=== PATIENT | male | born 1980 | race Caucasian/White ===

== ENCOUNTER 2017-02-10 15:33 | Emergency (ER) | payer OTHER ==
[2017-02-10] MEDS ORDERED: KETOROLAC 60 MG/2 ML VIAL IM STA (15:57)
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
[2017-02-10 18:33] VITALS: BP 129/73; PULSE 87; RESP 18; TEMP 97.5
== END 2017-02-10 16:10 | disposition home or self-care (01) ==
LOC: EC 15:33
DX: T22.211A Burn of second degree of right forearm, initial encounter (principal); T22.112A Burn of first degree of left forearm, initial encounter; Z79.899 Other long term (current) drug therapy; X11.8XXA Contact with other hot tap-water, initial encounter; Y99.0 Civilian activity done for income or pay
CPT/HCPCS: 99283; 96372; J1885

== ENCOUNTER 2018-10-01 07:28 | Emergency (ER) | payer MEDICARE, OTHER ==
[2018-10-01] MEDS ORDERED: KETOROLAC 30 MG/ML 1 ML VIAL IVP STA (07:48)
[2018-10-01] MEDS ORDERED: SODIUM CHLORIDE 0.9% 1,000 ML IV STA (07:48)
--- NOTE | 2018-10-01 08:04 | ED ---
General Adult HPI - General Chief complaint: Abdominal Pain Stated complaint: rt flank pain Time Seen by Provider: 10/01/18 07:30 Source: patient, RN notes reviewed Mode of arrival: ambulatory - History of Present Illness Initial comments: This is a 38-year-old male presents emergency Department complaining of right- sided flank pain for 2 days. Patient states she does have a history of kidney stones but never on the right. Patient states the pain feels reminiscent of his kidney stones but he hasn't had 7 years. Patient states the pain radiates to his lower abdomen and into his back. Patient states there is no movement that makes the symptoms worse. Patient states yesterday he was nauseous and vomiting but today he is not. Patient denies any hematuria or dysuria or urinary frequency. Patient states in the past he has had use lithotripsy to break up the stone. Patient denies any tenderness to palpation on his belly. - Related Data Home Medications Medication Instructions Recorded Confirmed PARoxetine HCL [Paxil] 40 mg PO DAILY 02/10/17 10/01/18 Atorvastatin [Lipitor] 10 mg PO DAILY 10/01/18 10/01/18 Ibuprofen [Motrin Ib] 400 mg PO Q6H PRN 10/01/18 10/01/18 Losartan-Hctz 50-12.5 mg [Hyzaar 1 tab PO DAILY 10/01/18 10/01/18 50-12.5] Previous Rx's Medication Instructions Recorded Hydrocodone/Acetaminophen [[place] 1 each PO Q4HR PRN #14 tab 10/01/18 5-325] Ketorolac [Toradol] 10 mg PO Q6HR #15 tab 10/01/18 Tamsulosin [Flomax] 0.4 mg PO DAILY #10 cap 10/01/18 Allergies Allergy/AdvReac Type Severity Reaction Status Date / Time No Known Allergies Allergy Verified 10/01/18 08:41 Review of Systems ROS Statement: Those systems with pertinent positive or pertinent negative responses have been documented in the HPI. ROS Other: All systems not noted in ROS Statement are negative. Past Medical History Past Medical History: Hypertension Additional Past Medical History / Comment(s): kidney stones History of Any Multi-Drug Resistant Organisms: None Reported Additional Past Surgical History / Comment(s): lithotripsy Past Psychological History: Anxiety Smoking Status: Former smoker Past Alcohol Use History: Occasional Past Drug Use History: Marijuana General Exam - General Exam Comments Initial Comments: GENERAL: Patient is well-developed and well-nourished. Patient is nontoxic and well- hydrated and is in moderate distress. ENT: Neck is soft and supple. No significant lymphadenopathy is noted. Oropharynx is clear. Moist mucous membranes. Neck has full range of motion without eliciting any pain. EYES: The sclera were anicteric and conjunctiva were pink and moist. Extraocular movements were intact and pupils were equal round and reactive to light. Eyelids were unremarkable. PULMONARY: Unlabored respirations. Good breath sounds bilaterally. No audible rales rhonchi or wheezing was noted. CARDIOVASCULAR: There is a regular rate and rhythm without any murmurs gallops or rubs. ABDOMEN: Soft and nontender with normal bowel sounds. SKIN: Skin is clear with no lesions or rashes and otherwise unremarkable. NEUROLOGIC: Patient is alert and oriented x3. Cranial nerves II through XII are grossly intact. Motor and sensory are also intact. Normal speech, volume and content. Symmetrical smile. MUSCULOSKELETAL: Normal extremities with adequate strength and full range of motion. LYMPHATICS: No significant lymphadenopathy is noted PSYCHIATRIC: Normal psychiatric evaluation. Course Vital Signs 10/01/18 07:34 Temperature 98.3 F Pulse Rate 86 Respiratory 18 Rate Blood Pressure 169/100 O2 Sat by Pulse 99 Oximetry Medical Decision Making - Medical Decision Making CAT scan showed a 6-7 cm mid ureter stone. Patient has right-sided hydronephrosis - Lab Data Result diagrams: 10/01/18 08:23 10/01/18 08:23 Lab Results 10/01/18 10/01/18 Range/Units 08:23 08:23 WBC 11.2 H (3.8-10.6) k/uL RBC 4.88 (4.30-5.90) m/uL Hgb 14.2 (13.0-17.5) gm/dL Hct 40.9 (39.0-53.0) % MCV 83.8 (80.0-100.0) fL MCH 29.2 (25.0-35.0) pg MCHC 34.8 (31.0-37.0) g/dL RDW 15.0 (11.5-15.5) % Plt Count 250 (150-450) k/uL Neutrophils % 78 % Lymphocytes % 13 % Monocytes % 7 % Eosinophils % 1 % Basophils % 0 % Neutrophils # 8.7 H (1.3-7.7) k/uL Lymphocytes # 1.5 (1.0-4.8) k/uL Monocytes # 0.8 (0-1.0) k/uL Eosinophils # 0.1 (0-0.7) k/uL Basophils # 0.0 (0-0.2) k/uL Sodium 143 (137-145) mmol/L Potassium 3.8 (3.5-5.1) mmol/L Chloride 105 (98-107) mmol/L Carbon Dioxide 28 (22-30) mmol/L Anion Gap 10 mmol/L BUN 18 (9-20) mg/dL Creatinine 1.38 H (0.66-1.25) mg/dL Est GFR (CKD-EPI)AfAm 76 (>60 ml/min/1.73 sqM) Est GFR (CKD-EPI)NonAf 65 (>60 ml/min/1.73 sqM) Glucose 106 H (74-99) mg/dL Calcium 9.6 (8.4-10.2) mg/dL Total Bilirubin 0.6 (0.2-1.3) mg/dL AST 31 (17-59) U/L ALT 50 (21-72) U/L Alkaline Phosphatase 56 (38-126) U/L Total Protein 7.5 (6.3-8.2) g/dL Albumin 4.5 (3.5-5.0) g/dL Amylase 67 (30-110) U/L Lipase 74 (23-300) U/L Disposition Clinical Impression: Kidney stone, Hydronephrosis Disposition: HOME SELF-CARE Condition: Good Prescriptions: Tamsulosin [Flomax] 0.4 mg PO DAILY #10 cap Hydrocodone/Acetaminophen [[place] 5-325] 1 each PO Q4HR PRN #14 tab PRN Reason: Pain Ketorolac [Toradol] 10 mg PO Q6HR #15 tab Is patient prescribed a controlled substance at d/c from ED?: Yes When asked, does pt state using other controlled substances?: No If prescribed controlled substance>3 days was MAPS reviewed?: Prescribed <3 Days If opioid is for acute pain is fill amount 7 days or less?: Yes If Rx opioid, was Start Talking consent form obtained?: Yes Referrals: Kenneth Gomez MD [Primary Care Provider] - 1-2 days Time of Disposition: 08:59
--- NOTE | 2018-10-01 08:20 | XR ---
EXAMINATION TYPE: XR KUB DATE OF EXAM: 10/01/2018 COMPARISON: X-ray 10/21/2010 HISTORY: Pain TECHNIQUE: One view abdominal series FINDINGS: The osseous structures are intact. The bowel gas pattern is nonspecific. Lung bases are clear. Ther e is a 6 mm calcification region of the right renal pelvis or proximal ureter. Scattered air-fluid le vels are seen. IMPRESSION: 1. Nonspecific abdomen. Scattered air-fluid levels seen with enteritis or ileus. 2. Suspect proximal right ureteral stone measuring 6 mm.
--- NOTE | 2018-10-01 08:41 | CT ---
EXAMINATION TYPE: CT abdomen pelvis wo con DATE OF EXAM: 10/01/2018 COMPARISON: None HISTORY: Right flank pain,jhistory of stone CT DLP: 1146 mGycm Automated exposure control for dose reduction was used. TECHNIQUE: Helical acquisition of images was performed from the lung bases through the pelvis. FINDINGS: LUNG BASES: There is a 3 mm nodule in the anterior segment right upper lobe too small to characterize . Six-month follow-up recommended. LIVER/GB: No significant abnormality is appreciated. PANCREAS: No significant abnormality is seen. SPLEEN: No significant abnormality is seen. ADRENALS: No significant abnormality is seen. KIDNEYS: There is perinephric edema involving the right kidney which appears enlarged. There is moder ate right hydronephrosis secondary to a proximal right ureteral calculus measuring 6 to 7 mm. Additio nal punctate 1 mm lower pole right renal calculus and upper pole left renal calculus. No hydronephros is on the left. ADENOPATHY: None visualized. OSSEOUS STRUCTURES: No significant abnormality is seen. BOWEL: Bowel gas pattern nonspecific. Appendix normal. OTHER: Aorta of normal caliber. No free fluid. No free air. Fat-containing hiatal hernia. IMPRESSION: 1. Right renal enlargement with perinephric edema is moderate right hydronephrosis secondary to obstr ucting proximal right ureteral calculus measuring between 6 and 7 mm. 2. Nonobstructing additional bilateral nephrolithiasis. 3. There is a 3 mm right upper lobe pulmonary nodule. Finding 2 small to characterize. Recommend 6 mo nth follow-up CT scan chest to confirm stability.
[2018-10-01] MEDS ORDERED: ONDANSETRON 4 MG/2 ML VIAL IVP STA (08:56)
[2018-10-01] MEDS ORDERED: HYDROmorphone 1 MG/ML 1 ML SYRINGE IVP STA (08:56)
[2018-10-01 08:58] LABS: Albumin 4.5 g/dL (3.5-5.0); Calcium 9.6 mg/dL (8.4-10.2); Potassium 3.8 mmol/L (3.5-5.1); Total Bilirubin 0.6 mg/dL (0.2-1.3); Total Protein 7.5 g/dL (6.3-8.2)
[2018-10-01 09:00] LABS: Basophils % (A) 0 %; Eosinophils # (A) 0.1 k/uL (0-0.7); Eosinophils % (A) 1 %; HCT 40.9 % (39.0-53.0); HGB 14.2 gm/dL (13.0-17.5); Lymphocytes # (A) 1.5 k/uL (1.0-4.8); Lymphocytes % (A) 13 %; MCH 29.2 pg (25.0-35.0); MCHC 34.8 g/dL (31.0-37.0); MCV 83.8 fL (80.0-100.0); Mean Platelet Volume 7.9; Monocytes # (A) 0.8 k/uL (0-1.0); Monocytes % (A) 7 %; Neutrophils # (A) 8.7 k/uL (1.3-7.7); Neutrophils % (A) 78 %; Platelet Count 250 k/uL (150-450); RBC 4.88 m/uL (4.30-5.90); WBC 11.2 k/uL (3.8-10.6)
[2018-10-01 09:30] VITALS: BP 158/94; PULSE 78; RESP 16; TEMP 97.9
== END 2018-10-01 09:20 | disposition home or self-care (01) ==
LOC: EC 07:28
DX: N13.2 Hydronephrosis with renal and ureteral calculous obstruction (principal); F41.9 Anxiety disorder, unspecified; I10 Essential (primary) hypertension; Z87.891 Personal history of nicotine dependence; Z79.899 Other long term (current) drug therapy; Z98.890 Other specified postprocedural states
CPT/HCPCS: 99284; 96374; 96375; 96361; 36415; 80053; 82150; 83690; 85025; 74018; 74176; J2405; J1885; J1170

== ENCOUNTER 2018-10-10 07:05 | Day surgery (SDC) | payer MEDICARE, OTHER ==
[2018-10-05 17:08] VITALS: BMI 38.6
--- NOTE | 2018-10-05 21:44 | P.GSHP ---
History of Present Illness H&P Date: 10/05/18 Chief Complaint: Right flank pain The patient is a 38-year-old male with a history of calcium oxalate urolithiasis. He passed a stone in 2003, composed of calcium oxalate dihydrate and apatite. He underwent successful left ESWL in 2010. He now presents with right renal colic, and a CT scan shows evidence of right hydronephrosis due to a 6-7 mm right proximal ureteral calculus. Alternative treatment options were reviewed, and he has elected to undergo ESWL. - Constitutional Constitutional: Denies chills, Denies fever - Gastrointestinal Gastrointestinal: Reports nausea - Genitourinary (Female) Genitourinary: Reports flank pain, Reports kidney stones, Denies hematuria Past Medical History Past Medical History: Hyperlipidemia, Hypertension Additional Past Medical History / Comment(s): HX kidney stones History of Any Multi-Drug Resistant Organisms: None Reported Additional Past Surgical History / Comment(s): Lithotripsy Smoking Status: Former smoker - Past Family History Mother Family Medical History: No Reported History Medications and Allergies Home Medications Medication Instructions Recorded Confirmed Type PARoxetine HCL [Paxil] 40 mg PO DAILY 02/10/17 10/05/18 History Atorvastatin [Lipitor] 10 mg PO DAILY 10/01/18 10/05/18 History Hydrocodone/Acetaminophen [[place] 1 each PO Q4HR PRN #14 tab 10/01/18 10/05/18 Rx 5-325] Ibuprofen [Motrin Ib] 400 mg PO Q6H PRN 10/01/18 10/05/18 History Losartan-Hctz 50-12.5 mg [Hyzaar 1 tab PO DAILY 10/01/18 10/05/18 History 50-12.5] Tamsulosin [Flomax] 0.4 mg PO DAILY #10 cap 10/01/18 10/05/18 Rx Ketorolac [Toradol] 10 mg PO Q6HR 10/05/18 10/05/18 History Allergies Allergy/AdvReac Type Severity Reaction Status Date / Time No Known Allergies Allergy Verified 10/05/18 16:47 Surgical - Exam - General well developed, well nourished, no distress - Neck no masses, trachea midline - Respiratory normal respiratory effort, clear to auscultation - Cardiovascular Rhythm: regular Abnormal Heart Sounds: no systolic murmur, no diastolic murmur, no rub, no S3 Gallop, no S4 Gallop, no click, no other - Abdomen Abdomen: soft, non tender, no guarding, no rigid, no rebound - Genitourinary normal penis with no external lesions, testicles non-tender - Psychiatric oriented to time, oriented to person, oriented to place, speech is normal, memory intact Results - Imaging CT scan - abdomen: report reviewed, image reviewed Assessment and Plan (1) Calculus of ureter Status: Acute Code(s): N20.1 - CALCULUS OF URETER SNOMED Code(s): 10968277 (2) Hydronephrosis with renal and ureteral calculus obstruction Status: Acute Code(s): N13.2 - HYDRONEPHROSIS WITH RENAL AND URETERAL CALCULOUS OBSTRUCTION SNOMED Code(s): 016347315 Plan: Right extracorporal shockwave lithotripsy (ESWL). The procedure has been reviewed in detail with the patient. He understands potential risks include anesthesia, renal contusion, perinephric hematoma, treatment failure, incomplete fragmentation, and [place]str[place]. He understands the possible need for secondary treatment.
[~2018-10-10 07:05] MED LIST: LACTATED RINGERS 1,000 ML IV SCH; LIDOCAINE 1% 20 ML VIAL (10MG/ML) FOR IV START INTRADERMA PRN
--- NOTE | 2018-10-10 07:35 | XR ---
KUB HISTORY: Right ureteral calculus Frontal KUB and 2 images correlated to prior KUB and CT 10/01/2018 At the level of the right L3-4 disc space there is a paraspinal calculus measuring approximately 0.8 in size. No other significant abnormality. IMPRESSION: Stable right ureteral calculus. Punctate bilateral nephrolithiasis not well seen on plain film.
[2018-10-10 08:01] VITALS: TEMP 98.3
[2018-10-10] MEDS ORDERED: PROPOFOL 10 MG/ML 20 ML VIAL IV ONE (08:28)
[2018-10-10] MEDS ORDERED: FUROSEMIDE 10 MG/ML 2 ML VIAL ONE (08:28)
[2018-10-10] MEDS ORDERED: MIDAZOLAM 2 MG/2 ML VIAL ONE (08:28)
[2018-10-10] MEDS ORDERED: fentaNYL (PF) 50 MCG/ML 2 ML AMP ONE (08:28)
--- NOTE | 2018-10-10 09:07 | P.OP ---
Date of Procedure: 10/10/18 Preoperative Diagnosis: Right ureteral calculus Postoperative Diagnosis: Same Procedure(s) Performed: Extracorporeal shockwave lithotripsy right, 2500 shocks, energy level Anesthesia: MAC Surgeon: Kenneth Bradley Estimated Blood Loss (ml): 0 Pathology: none sent Condition: stable Disposition: PACU Indications for Procedure: The patient is 38. He has a 7 mm proximal ureteral stone on the right. He comes for shockwave lithotripsy Description of Procedure: Patient is brought to the operating suite. He is given IV sedation on the operating table. The stone was seen in 2 views of fluoroscopy. A total of 2500 shocks at energy level was administered. The stone fractures nicely. 10 mg of Lasix is administered. At the end of procedure the patient awake and returned recovery room good condition. He tolerated procedure well be discharged home upon recovery.
[2018-10-10 09:34] VITALS: BP 131/85; PULSE 71; RESP 16
== END 2018-10-10 09:55 | disposition home or self-care (01) ==
LOC: ORWHC2ENDO 07:05
PROVIDERS: ATTEND Urology
DX: N20.1 Calculus of ureter (principal); Z87.442 Personal history of urinary calculi; I10 Essential (primary) hypertension; E78.5 Hyperlipidemia, unspecified; Z87.891 Personal history of nicotine dependence; F41.9 Anxiety disorder, unspecified; E66.01 Morbid (severe) obesity due to excess calories; Z68.39 Body mass index [BMI] 39.0-39.9, adult; Z79.1 Long term (current) use of non-steroidal anti-inflammatories (NSAID); Z79.899 Other long term (current) drug therapy
CPT/HCPCS: 74018; 50590; J2250; J1940; J3010; J2704

== ENCOUNTER → 2018-10-17 | Outpatient (CLI) | payer OTHER ==
--- NOTE | 2018-10-17 09:58 | XR ---
EXAMINATION TYPE: XR KUB DATE OF EXAM: 10/17/2018 CLINICAL DATA: 38-year-old male one week status post right-sided lithotripsy, follow-up exam, [facility] COMPARISON: None available at the time of this dictation FINDINGS: Nonobstructive bowel gas pattern. No significant stool burden. A couple punctate 3 mm calculi are present in the lower pole of the right kidney. Additional 2-3 calc ifications are present in the right paramedian pelvis measuring up to 6 mm. IMPRESSION: 1. A couple punctate 3 mm right lower pole renal calculi. 2. A few additional calcifications in the right paramedian pelvis measuring up to 6 mm could represen t distal ureteral calculi, bladder calculi, or phleboliths. Clinically correlate.
== END | disposition home or self-care (01) ==
LOC: RADXRMAIN 08:31
PROVIDERS: ATTEND Urology
DX: N20.0 Calculus of kidney (principal)
CPT/HCPCS: 74018

== ENCOUNTER → 2019-04-14 | Outpatient (CLI) | payer OTHER ==
--- NOTE | 2019-04-14 17:54 | CT ---
EXAMINATION TYPE: CT chest wo/w con DATE OF EXAM: 04/14/2019 COMPARISON: 10/01/2018 HISTORY: Follow up for known pulmonary nodule CT DLP: 1057.2 mGycm, Automated exposure control for dose reduction was used. CONTRAST: Performed injected with 100 mL of Isovue 300. TECHNIQUE: Axial images were obtained at 5 mm thick sections. Reconstructed images are reviewed on [employer] computer in the coronal plane. FINDINGS: Portion of the thyroid visualized is normal. There is a 0.7 cm faint area of increased density in the periphery of the right middle lobe. Series 7 image 35. This may correspond to the previous density. However, this is less dense and larger. PET C T is recommended for additional evaluation. No enlarged mediastinal or hilar adenopathy is evident. The ascending aorta diameter at the level o f the main pulmonary artery is 3.5 cm. The main pulmonary artery diameter at the bifurcation is 3.[address] sections are obtained through the upper abdomen. Abdomen is essentially unremarkable. IMPRESSIONS: 1. Previous nodule appears larger and less dense than the comparison. PET/CT is recommended for addit ional evaluation.
== END | disposition home or self-care (01) ==
LOC: RADCTMAIN 08:27
PROVIDERS: ATTEND Family Medicine
DX: R91.1 Solitary pulmonary nodule (principal)
CPT/HCPCS: 71270; Q9967

== ENCOUNTER → 2019-04-21 | Outpatient (CLI) | payer OTHER ==
--- NOTE | 2019-04-25 14:47 | PE ---
Nuclear medicine PET/CT HISTORY: Lung nodule, initial Patient received 12 mCi F-18 FDG intravenously in delayed scanning was performed from the skull base to the mid thighs. Localization and attenuation correction CT scan was performed. Correlation to chest CT 04/14/2019 Neck and chest: There is no suspicious hypermetabolic uptake. There is no evident cervical, supraclav icular, mediastinal, axillary, or hilar adenopathy. Some mild coronary artery calcification is presen t. There is a small hiatal hernia present. The small lung nodule in the right middle lobe the subpleu ral location is likely too small for characterization with PET CT. Lesion is felt likely to be inflam matory, benign. ABDOMEN: No evident adrenal mass. No retroperitoneal adenopathy or liver mass. No suspicious uptake. Osseous structures are unremarkable. IMPRESSION: Findings felt likely to be benign, follow-up CT scan could be performed in a year to asse ss for stability.
== END | disposition home or self-care (01) ==
LOC: RADPETMAIN 14:45
PROVIDERS: ATTEND Family Medicine
DX: R91.1 Solitary pulmonary nodule (principal)
CPT/HCPCS: 78815; A9552

== ENCOUNTER → 2021-04-16 | Outpatient (CLI) | payer OTHER ==
--- NOTE | 2021-04-17 07:27 | CT ---
EXAMINATION TYPE: CT chest wo/w con DATE OF EXAM: 04/16/2021 COMPARISON: Chest CT April 14, 2019 and PET/CT April 21, 2019. HISTORY: nodules CT DLP: 622.2 mGycm. Automated Exposure Control for Dose Reduction was Utilized. TECHNIQUE: CT scan of the thorax is performed following without and with IV Contrast, patient inject ed with 100 mL of Isovue 300. FINDINGS: LUNGS: There is a stable 7 x 4 mm subpleural right middle lobe nodule or nodular scarring axial image 37. This is too small to accurately characterize for postcontrast enhancement. It is almost certainl y benign given stability in patient of this age. No new greater than 5 mm noncalcified pulmonary nodu les or masses. Lungs remain clear. There is no pleural effusion or pneumothorax seen bilaterally. Th e tracheobronchial tree is patent. MEDIASTINUM: There are no greater than 1 cm hilar or mediastinal lymph nodes. No cardiomegaly or pe ricardial effusion is seen. Mild coronary artery calcification in the LAD OTHER: There is 3 to 4 mm nonobstructing upper pole left renal calculus axial image 61 that is more p rominent from prior. Partial visualization of thin-walled cyst right kidney midpole level on the last few axial images. Small degree of flame-shaped subareolar gynecomastia is noted. IMPRESSION: Stable small subpleural right mid lung nodule presumed benign. No new or enlarging greate r than 5 mm pulmonary nodules.
== END | disposition home or self-care (01) ==
LOC: RADCTMAIN 18:02
PROVIDERS: ATTEND Family Medicine
DX: R91.1 Solitary pulmonary nodule (principal)
CPT/HCPCS: 71270; Q9967